=== PATIENT | female | born 1990 | race Two or more races ===

== ENCOUNTER 2017-04-30 05:49 | Inpatient (IN) | payer OTHER ==
[~2017-04-30] VITALS: Ht 160 cm; Wt 77.0 kg
[2017-04-30] VITALS (18 sets, daily range): BP systolic 98–163; BP diastolic 54–103
[2017-04-30] MEDS ORDERED: PRENTAB55 PO (06:57)
[2017-04-30] MEDS ORDERED: LR 1,000 ML IV SCH (08:11)
[2017-04-30] MEDS ORDERED: LACTATED RINGER'S 1000 ML IV STA (08:11)
[2017-04-30 08:44] LABS: MEAN CORPUSCULAR HEMOGLOBIN 23.5 pg (27.0-33.0); MEAN CORPUSCULAR HGB CONC 32.9 g/dl (32.0-36.5); MEAN CORPUSCULAR VOLUME 71.3 fl (80.0-96.0); RED CELL DISTRIBUTION WIDTH 15.8 % (11.5-14.5); WHITE BLOOD COUNT 8.4 K/mm3 (4.0-10.0)
[2017-04-30] MEDS ORDERED: diphenhydrAMINE INJ 50MG/ML VIAL (J1200) IV PRN (09:34)
[2017-04-30] MEDS ORDERED: FENTANYL 2MCG/ML ROPIVACAINE 0.2% IN 0.9% NACL 200ML IVBAG As Ordered ONE (09:34)
[2017-04-30] MEDS ORDERED: ePHEDrine SULFATE 25 MG/5 ML(5MG/ML) SYRINGE IV PRN (09:34)
[2017-04-30] MEDS ORDERED: FENTANYL/ROPIVACAINE/NACL BAG 200 ML EPIDURAL SCH (09:34)
[2017-04-30] MEDS ORDERED: EPIDURAL COMMENT XX SCH (09:34)
[2017-04-30] MEDS ORDERED: REFRIGERATOR IV KEYS XX PRN (09:34)
[2017-04-30] MEDS ORDERED: NALOXONE INJ 0.4 MG/1 ML VIAL (J2310) IV PRN (09:34)
[2017-04-30] MEDS ORDERED: LACTATED RINGER'S 1000 ML IV PRN (09:34)
[2017-04-30] MEDS ORDERED: ONDANSETRON 4MG/2ML VIAL (J2405) IV PRN ×2 (09:34→11:15)
[2017-04-30] MEDS ORDERED: EPIDURAL/PCA KEYS XX PRN (09:34)
[2017-04-30] MEDS ORDERED: OXYTOCIN 30 UNITS IN 0.9% NaCl 500ML IV BAG (J2590) As Ordered ONE (10:17)
[2017-04-30] MEDS ORDERED: OXYTOCIN DRIP 30 UNITS in APPROPRIATE DILUENT 1 EA IV SCH (11:04)
[2017-04-30] MEDS ORDERED: DIBUCAINE 1% OINTMENT 30GM TOP PRN (11:15)
[2017-04-30] MEDS ORDERED: MEASLES,MUMPS,RUBELLA VACCINE INJ (MMR-II) (90707) SC SCH (11:15)
[2017-04-30] MEDS ORDERED: ACETAMINOPHEN 500 MG TAB PO PRN (11:15)
[2017-04-30] MEDS ORDERED: RHOGAM 300 MCG (1500 IU) INJ (J2790) IM SCH (11:15)
[2017-04-30] MEDS ORDERED: METHYLERGONOVINE MALEATE 0.2 MG/ML VIAL (J2210) IM PRN (11:15)
[2017-04-30] MEDS ORDERED: PROMETHAZINE 25 MG TAB PO PRN (11:15)
[2017-04-30 13:17] LABS: HBSAG L&D NEGATIVE (NEGATIVE)
[2017-04-30] MEDS: IBUPROFEN 800 MG TAB PO PRN ×2 (14:10→21:18)
[2017-04-30] MEDS: PRENATAL VITAMINS CHEWABLE TABLET PO SCH (17:45)
[2017-04-30] MEDS: DOCUSATE SODIUM 100 MG CAP PO SCH (21:17)
[2017-05-01 06:00] VITALS: BP 141/77
[2017-05-01] MEDS: PRENATAL VITAMINS CHEWABLE TABLET PO SCH (08:31)
[2017-05-01] MEDS: IBUPROFEN 800 MG TAB PO PRN ×2 (08:32→18:32)
[2017-05-01] MEDS: DOCUSATE SODIUM 100 MG CAP PO SCH (08:32)
[2017-05-01] MEDS ORDERED: COLA100C5 PO (09:35)
[2017-05-01] MEDS ORDERED: IBUP-1114 PO (09:37)
[2017-05-01] MEDS ORDERED: ACET50TA PO (09:37)
== END 2017-05-01 18:30 | disposition home or self-care (01) | DRG 775 ==
LOC: M LDO 05:49 → M LDI 08:48 → M OBS 14:59
PROVIDERS: ADMIT Student in an Organized Health Care Education/Training Program; ATTEND Obstetrics & Gynecology
PROC: 10E0XZZ Delivery of Products of Conception, External Approach (ICD-10-PCS; principal; 2017-04-30)
PROC: 0HQ9XZZ Repair Perineum Skin, External Approach (ICD-10-PCS; 2017-04-30)
DX: O70.0 First degree perineal laceration during delivery (principal); Z3A.39 39 weeks gestation of pregnancy; Z37.0 Single live birth